=== PATIENT | male | born 1995 | race Two or more races ===

== ENCOUNTER 2019-08-16 15:26 | Emergency (ER) | payer MEDICAID ==
[~2019-08-16] VITALS: Ht 177.8 cm; Wt 81.6 kg
[2019-08-16 15:30] VITALS: BP 126/79
[2019-08-16] MEDS ORDERED: ABILIFY10 MG ORAL (15:30)
[2019-08-16] MEDS ORDERED: VIMPAT100 MG PO (15:30)
--- NOTE | 2019-08-16 15:30 | NUR ---
ED Nurse Note: Patient BIBA to ED complaining of n/v x 1 day. Patient vomited on the bus and the business leader called 911. Patient states he ate 2x today and vomited each time he ate today, did not eat anything abnormal.
[2019-08-16] MEDS ORDERED: Lidocaine 2% Visc 15ml soln ORAL ONE (16:00)
[2019-08-16] MEDS ORDERED: Dicyclomine HCl 10mg/5ml oral soln ORAL ONE (16:00)
[2019-08-16] MEDS ORDERED: Mylanta II UD 30ml ORAL ONE (16:00)
--- NOTE | 2019-08-16 16:00 | Emergency Room Report ---
History of Present Illness General Chief Complaint: Abdominal Pain Source: Patient, EMS Present Illness HPI Patient is a 23-year-old male presents after increased epigastric pain and vomiting. He reports of increased nausea. Prior history of epilepsy and currently takes Abilify as well as Vimpat. Patient reports of increased epigastric discomfort as well as nausea and vomiting. Allergies: Coded Allergies: No Known Allergies (Unverified , 08/16/19) Patient History Past Medical History: see triage record Reviewed Nursing Documentation: PMH: Agreed; PSxH: Agreed Nursing Documentation-PMH History Of Psychiatric Problem: Yes - ANXIETY Hx Seizures: Yes Review of Systems All Other Systems: negative except mentioned in HPI Physical Exam Vital Signs Date Time Temp Pulse Resp B/P (MAP) Pulse Ox O2 Delivery O2 Flow Rate FiO2 08/16/19 15:23 98.1 110 19 126/79 (95) 97 Room Air Sp02 EP Interpretation: reviewed, normal General Appearance: normal inspection, well appearing, no apparent distress, alert, GCS 15 Head: atraumatic ENT: normal ENT inspection, hearing grossly normal, normal voice Neck: normal inspection, full range of motion, supple, no bony tend Respiratory: normal inspection, lungs clear, normal breath sounds, no respiratory distress, no retraction, no wheezing Cardiovascular #1: regular rate, rhythm, no edema Gastrointestinal: normal inspection, normal bowel sounds, non tender, soft, no guarding, no hernia Genitourinary: no CVA tenderness Musculoskeletal: normal inspection, back normal, normal range of motion Neurologic: alert, motor strength/tone normal, senior radiation therapist III-XII nml as tested, responsive, speech normal, normal inspection Psychiatric: normal inspection, judgement/insight normal, mood/affect normal Medical Decision Making Diagnostic Impression: Primary Impression: Gastroenteritis ER Course Patient presented for abdominal pain. Differential diagnoses included ischemic bowel, appendicitis, perforated viscus, abdominal aortic aneurysm, inferior myocardial infarction, viral gastroenteritis among others.Because patient's complexity imaging studies, and laboratory testing ordered. Patient is an overall benign exam and sounds as if he may have a early viral gastroenteritis. Patient is given IV fluids as well as IV antiemetics. Laboratory testing showed . Electrolytes patient was given IV antiemetics as well as medications for discomfort. Lipase was lipase is normal. White blood count was minimally elevated. This is consistent with stress demargination. CT of the abdomen pelvis showed:Some fluid-filled loops of bowel without any evidence of bowel obstruction per radiology. CT did show some retained stool. Patient states that he had a bowel movement this morning. Abdominal ultrasound showed Patient appears to be stable for close outpatient follow up. Patient was advised to follow-up with primary care physician for recheck. He is advised to return if worse. This medical record is generated with [employer] supervisor front software. There may be some supervisor front discrepancies related to use of this software Labs Test 08/16/19 15:50 08/16/19 18:10 White Blood Count 17.7 K/UL (4.8-10.8) Red Blood Count 5.89 M/UL (4.70-6.10) Hemoglobin 17.2 G/DL (14.2-18.0) Hematocrit 50.0 % (42.0-52.0) Mean Corpuscular Volume 85 FL (80-99) Mean Corpuscular Hemoglobin 29.2 PG (27.0-31.0) Mean Corpuscular Hemoglobin Concent 34.4 G/DL (32.0-36.0) Red Cell Distribution Width 11.2 % (11.6-14.8) Platelet Count 306 K/UL (150-450) Mean Platelet Volume 7.1 FL (6.5-10.1) Neutrophils (%) (Auto) 84.9 % (45.0-75.0) Lymphocytes (%) (Auto) 8.4 % (20.0-45.0) Monocytes (%) (Auto) 6.0 % (1.0-10.0) Eosinophils (%) (Auto) 0.2 % (0.0-3.0) Basophils (%) (Auto) 0.5 % (0.0-2.0) Sodium Level 137 MMOL/L (136-145) Potassium Level 3.7 MMOL/L (3.5-5.1) Chloride Level 100 MMOL/L (98-107) Carbon Dioxide Level 26 MMOL/L (21-32) Anion Gap 11 mmol/L (5-15) Blood Urea Nitrogen 16 mg/dL (7-18) Creatinine 0.8 MG/DL (0.55-1.30) Estimat Glomerular Filtration Rate > 60 mL/min (>60) Glucose Level 97 MG/DL (74-106) Calcium Level 10.0 MG/DL (8.5-10.1) Total Bilirubin 0.6 MG/DL (0.2-1.0) Aspartate Amino Transf (AST/SGOT) 23 U/L (15-37) Alanine Aminotransferase (ALT/SGPT) 45 U/L (12-78) Alkaline Phosphatase 103 U/L (46-116) Troponin I 0.000 ng/mL (0.000-0.056) Total Protein 9.3 G/DL (6.4-8.2) Albumin 4.7 G/DL (3.4-5.0) Globulin 4.6 g/dL Albumin/Globulin Ratio 1.0 (1.0-2.7) Lipase 109 U/L (73-393) Urine Color Pale yellow Urine Appearance Clear Urine pH 7 (4.5-8.0) Urine Specific [place] 1.005 (1.005-1.035) Urine Protein 2+ (NEGATIVE) Urine Glucose (UA) Negative (NEGATIVE) Urine Ketones Negative (NEGATIVE) Urine Blood Negative (NEGATIVE) Urine Nitrite Negative (NEGATIVE) Urine Bilirubin Negative (NEGATIVE) Urine Urobilinogen Normal MG/DL (0.0-1.0) Urine Leukocyte Esterase Negative (NEGATIVE) Urine RBC 0-2 /HPF (0 - 0) Urine WBC 0 /HPF (0 - 0) Urine Squamous Epithelial Cells Occasional /LPF Urine Bacteria None /HPF (NONE) Last Vital Signs Date Time Temp Pulse Resp B/P (MAP) Pulse Ox O2 Delivery O2 Flow Rate FiO2 08/16/19 15:23 98.1 110 19 126/79 (95) 97 Room Air Status: improved Disposition: HOME, SELF-CARE Condition: Stable Scripts Dicyclomine Hcl* (DICYCLOMINE HCL*) 10 Mg Capsule 10 MG ORAL QID, #20 CAP Prov: Won Arguello MD 08/16/19 Ondansetron (Zofran) 4 Mg Tablet 4 MG ORAL Q6H PRN for Nausea & Vomiting, #30 TAB 0 Refills Prov: Won Arguello MD 08/16/19 Won Arguello MD Aug 16, 2019 16:00
[2019-08-16 16:20] LABS: HEMOGLOBIN 17.2 G/DL (14.2-18.0); MEAN CORPUSCULAR VOLUME 85 FL (80-99); PLATELET COUNT 306 K/UL (150-450); RED BLOOD COUNT 5.89 M/UL (4.70-6.10); RED CELL DISTRIBUTION WIDTH 11.2 % (11.6-14.8); WHITE BLOOD COUNT 17.7 K/UL (4.8-10.8)
[2019-08-16 16:21] LABS: BASOPHILS % (AUTO) 0.5 % (0.0-2.0); EOSINOPHILS % (AUTO) 0.2 % (0.0-3.0); LYMPHOCYTES % (AUTO) 8.4 % (20.0-45.0); NEUTROPHILS % (AUTO) 84.9 % (45.0-75.0)
[2019-08-16 16:30] LABS: ANION GAP 11 mmol/L (5-15); BLOOD UREA NITROGEN 16 mg/dL (7-18); CARBON DIOXIDE 26 MMOL/L (21-32); CHLORIDE 100 MMOL/L (98-107); CREATININE 0.8 MG/DL (0.55-1.30); POTASSIUM 3.7 MMOL/L (3.5-5.1); SODIUM 137 MMOL/L (136-145)
[2019-08-16 16:34] LABS: ALANINE AMINOTRANSFERASE 45 U/L (12-78); ALBUMIN 4.7 G/DL (3.4-5.0); ALKALINE PHOSPHATASE 103 U/L (46-116); ASPARTATE AMINO TRANSFERASE 23 U/L (15-37); BILIRUBIN,TOTAL 0.6 MG/DL (0.2-1.0)
[2019-08-16] MEDS ORDERED: Omnipaque-300 100ml vial INJ PRN (16:45)
[2019-08-16 17:15] VITALS: BP 118/86
--- NOTE | 2019-08-16 18:13 | Diagnostic Imaging Report ---
EXAM: CT Abdomen and Pelvis With Intravenous Contrast CLINICAL HISTORY: PAIN TECHNIQUE: Axial computed tomography images of the abdomen and pelvis with intravenous contrast. CTDI is 24.9 mGy and DLP is 1501.50 mGy-cm. One or more of the following dose reduction techniques were used: automated exposure control, adjustment of the mA and/or kV according to patient size, use of iterative reconstruction technique. COMPARISON: No relevant prior studies available. FINDINGS: Lung bases: No significant abnormality. ABDOMEN: Liver: No significant abnormality. Gallbladder and bile ducts: No significant abnormality. No calcified stones. Pancreas: No significant abnormality. Spleen: No significant abnormality. Adrenals: No significant abnormality. Kidneys and ureters: No significant abnormality. No hydronephrosis. Stomach and bowel: No significant abnormality. Bowel is nondilated. PELVIS: Appendix: The partially visualized appendix is within normal limits. Bladder: Mild circumferential thickening of the wall of the urinary bladder. Reproductive: Unremarkable as visualized. ABDOMEN and PELVIS: Intraperitoneal space: No significant abnormality. No free air. Bones/joints: No acute fracture or malalignment. Soft tissues: No significant abnormality. Vasculature: No significant abnormality. No abdominal aortic aneurysm. Lymph nodes: No significant abnormality. IMPRESSION: Mild circumferential thickening of the wall of the urinary bladder. Urinalysis may be considered if there is clinical concern for cystitis. <MYCVCSECTION> Communications: 08/16/19 19:53 Call From [facility] Dr. Arguello on 08/16 19:43 (-08:00)
--- NOTE | 2019-08-16 19:05 | NUR ---
HAND-OFF: Report given to Francisco DUTTA.
[2019-08-16 19:14] VITALS: BP 131/84
[2019-08-16 19:27] LABS: APPEARANCE,URINE CLEAR; BILIRUBIN, URINE NEGATIVE (NEGATIVE); COLOR,URINE PALE YELLOW; GLUCOSE, URINE (UA) NEGATIVE (NEGATIVE); KETONES,URINE NEGATIVE (NEGATIVE); LEUKOCYTE ESTERASE ,URINE NEGATIVE (NEGATIVE); NITRITE,URINE NEGATIVE (NEGATIVE); PH,URINE 7 (4.5-8.0); PROTEIN,URINE 2+ (NEGATIVE); UROBILINOGEN,URINE NORMAL MG/DL (0.0-1.0)
[2019-08-16] MEDS ORDERED: DICYCLOMINE HCL10 MG ORAL (19:51)
[2019-08-16] MEDS ORDERED: ZOFRAN4 MG ORAL (19:51)
[2019-08-16 20:00] VITALS: BP 129/85
[2019-08-16 20:14] VITALS: BP 130/84
--- NOTE | 2019-08-16 20:14 | NUR ---
ER DISCHARGE NOTE: Patient is cleared to be discharged per ERMD, pt is aox4, on room air, with stable vital signs. pt was given dc and prescription instructions, pt was able to verbalize understanding, pt id band and iv site removed without complications. pt is able to ambulate with steady gait. pt took all belongings. Pt states he has 3/10 pain. Family member taking pt home.
== END 2019-08-16 20:41 | disposition home or self-care (01) ==
LOC: EDBD 15:26 → EMR 20:10
DX: K52.9 Noninfective gastroenteritis and colitis, unspecified (principal); G40.909 Epilepsy, unspecified, not intractable, without status epilepticus; F41.9 Anxiety disorder, unspecified
CPT/HCPCS: 36415; 74177; 80053; 81003; 83690; 84484; 85025; 96374; J2405; Q9967; Z7502; 99284